=== PATIENT | male | born 1965 | race Caucasian/White ===

== ENCOUNTER 2023-04-08 07:02 | Emergency (ER) | payer OTHER, SELFPAY ==
[2023-04-08 07:10] VITALS: BP 147/77
--- NOTE | 2023-04-08 07:16 | ED.GENMED ---
History of Present Illness
General
Chief Complaint: Chest Pain
Time Seen by Provider: 04/08/23 07:16
Travel History
Have you had any contact with someone who has COVID-19?: No
Do you have any symptoms of coronavirus? Fever > 100 degrees, chills, cough, shortness of breath, sore throat, loss of taste or smell, muscle aches, or headache?: No
History of Present Illness
History of Present Illness:
HPI: Patient relates she had left-sided lower rib discomfort that started yesterday but worsened today. He has no associated shortness of breath or diaphoresis. He was at the gym today and symptoms worsen with position changes. He has no history
of high blood pressure, high cholesterol, diabetes, no first-degree family history of premature CAD, and never smoked.
EXAM:
GENERAL: Well appearing in no distress
HEENT: Moist oral mucosa
CARDIOVASCULAR: No murmurs, normal heart rate and rhythm, moderate to severe point chest wall tenderness in the left anterolateral region
PULMONARY: No respiratory distress, breath sounds are fairly clear but there does appear to be some rales at the left base
ABDOMEN: Soft with no peritoneal signs, no tenderness
NEUROLOGIC: Excellent strength all extremities, no coordination deficits
PSYCHIATRIC: Appropriate mental status, normal insight and judgement
EXTREMITIES: Nontender, no edema, moves all extremities equally
SKIN: No rash, no lesions
ED COURSE:
7:30 AM I initially evaluated patient
NUMBER AND COMPLEXITY OF PROBLEMS ADDRESSED AT THE ENCOUNTER
� Chronic conditions affecting care: Hypothyroidism
� Acute Exacerbation and/or Progression of Chronic Illness: This is an acute problem
� Differential Diagnosis includes: Chest wall pain, ACS very unlikely, PE very unlikely as heart rate is 55 and room air sats are 100% and reports no shortness of breath
AMOUNT AND/OR COMPLEXITY OF DATA TO BE REVIEWED AND ANALYZED
� I performed an independent evaluation of and my interpretation is:
EKG: Sinus 52, normal axis, no acute ST abnormality
CT:
X-rays: Chest x-ray shows no acute abnormality
Laboratory Studies: CBC and chemistries unremarkable, troponin negative despite 24 hours of symptoms, D-dimer reassuring
Other:
� Review of other/old records: The patient had several ED visits over the last few years related to back pain; blood work from 2021 was unremarkable
� Clinical information was obtained by an independent historian: I spoke to the at bedside
� Prescriptions/Medications Considered but not given:
� Further testing considered but not performed:
RISK OF COMPLICATIONS AND/OR MORBIDITY OR MORTALITY OF PATIENT MANAGEMENT
� Social determinants of health affecting care: Lives at home
� Discussion with other providers:
� Escalation of care including admission/observation vs risk of discharge considered: About 1 day of worsening left anterolateral chest which is very reproducible on exam with both palpation and position changes of the torso with
normal EKG. However troponin was checked as he is in his 50s and was unremarkable. D-dimer negative. On reassessment at 9:20 AM, the patient reports virtually no ongoing chest pain after Toradol was given. However given his age I do recommend he
follows up with cardiology. Low risk cardiology follow-up has been arranged.
Past History
Past History
ED Past Medical History: Other
ED Past Surgical History: None
Social History
Tobacco: Non-smoker
Personal:
Living: with family
Phy Exam
Physical Exam
Physical Exam:
See HPI
Scores
Heart Score for Chest Pain Patients
STEMI patient?: Not applicable
Course
Orders/Labs/Results
Orders:
Orders
04/08/23 07:05
ECG [Electrocardiogram (*1)] Urgent
Reason for Study: Chest Pain
04/08/23 07:06
EKG- Treatment ONCE
04/08/23 07:19
CR Chest - 2 Views Urgent
Comment:
Reason For Exam: L CP
04/08/23 07:27
Ketorolac [Toradol] 15 mg IV NOW STA
04/08/23 07:36
Basic Metabolic Panel Urgent
Complete Blood Count/No Diff Urgent
D-Dimer Urgent
Magnesium Urgent
Troponin I Urgent
Abnormal Lab Results
04/08/23
07:36
BUN 25 H mg/dl
(9-20)
Glucose 104 H mg/dl
(70-99)
04/08/23 07:36
04/08/23 07:36
Vital Signs
Initial and Last Documented VS:
Initial Vital Signs
Temp Pulse Resp BP Pulse Ox
98.4 F 60 18 147/77 98
04/08/23 07:10 04/08/23 07:10 04/08/23 07:10 04/08/23 07:10 04/08/23 07:10
Last Documented Vital Signs
Temp Pulse Resp BP Pulse Ox
98.4 F 52 20 112/76 96
04/08/23 07:10 04/08/23 08:00 04/08/23 08:00 04/08/23 08:00 04/08/23 08:00
*Critical Care Note
Total Time (30-74mins, 75-104mins- exclusive of procedures): Not Applicable
ED Attending Note
-
Portions of this chart may have been created with voice recognition software.� Occasional wrong word or��sound alike� substitutions may have occurred due to the inherent limitations of voice recognition software.
Discharge Plan
Departure
Patient Disposition: Home (Routine Discharge)
Date of Disposition: 04/08/23
Time of Disposition: 09:24
Patient with high blood pressure during this ER visit?: Yes
Discharge Problem:
Chest wall pain
Instructions: Chest Pain CBC Follow Up
Prescriptions:
No Action
levothyroxine 125 mcg Tablet
125 mcg PO DAILY
Glucosamine Chondroitin 550-30-1 mg Capsule
1 cap PO DAILY
Referrals:
Angel Wilkinson MD [Active] - Follow up in 2-3 days
Luke Daniels MD [Family Provider] -
Activity Restrictions/Additional Instructions:
All your cardiac testing is negative today, I do recommend you follow-up with hand plate stacker. Somebody from [facility] cardiology should be contacting you to arrange follow-up. I have given you the contact information for one of the hand plate stacker
in that group. I recommend 3-4 [id number] ibuprofen (Motrin) every 8 hours with food for a few days. Return here if worse.
Interventions
Interventions:
*Risk Screen - Suicide Last Done: 04/08/23 07:54
*General Assessment Last Done: 04/08/23 07:40
*Neglect/Abuse Screening Last Done: 04/08/23 07:54
ED- Fall Risk Assessment Last Done: 04/08/23 07:40
*ED COVID-19 Vaccine History Last Done: 04/08/23 07:10
ED- Cardiac Assessment Last Done: 04/08/23 07:42
[2023-04-08 07:36] VITALS: BP 111/87
[2023-04-08] MEDS: TORADOL 15 MG IV (07:38)
[2023-04-08 07:40] VITALS: BMI 25.8
[2023-04-08 07:45] LABS: Hemoglobin 15.8 g/dL (13.0-18.0); Mean Corp Hgb Conc. 35.1 g/dL (33.0-37.0); Mean Corpuscular Volume 88.2 fL (80.0-94.0); Mean Platelet Volume 9.8 fL (7.4-10.4); Platelet Count 162 10^3/uL (130-400); Red Cell Dist. Width 12.4 % (11.5-14.5); White Blood Cell Count 6.3 10^3/uL (4.8-10.8)
[2023-04-08 07:58] VITALS: BP 114/79
[2023-04-08 08:00] VITALS: BP 112/76
[2023-04-08 08:02] LABS: Blood Urea Nitrogen 25 mg/dl (9-20); Calcium 9.1 mg/dl (8.4-10.2); Carbon Dioxide 27 mmol/L (22-30); Chloride 106 mmol/L (98-107); Estimated Creatinine Clearance 90 ml/min; Glucose 104 mg/dl (70-99); Magnesium 1.9 mg/dl (1.6-2.3); Potassium 4.4 mmol/L (3.5-5.1); Sodium 138 mmol/L (135-145); eGFR > 60.00
[2023-04-08 08:14] LABS: Troponin I < 0.012 ng/ml
[2023-04-08 09:00] VITALS: BP 110/75
[2023-04-08 09:03] LABS: D-Dimer < 0.27 ug/mlFEU (0.00-0.50)
== END 2023-04-08 09:37 | disposition home or self-care (01) ==
LOC: EMR 07:02
PROVIDERS: EMERGENCY PHYSICIAN Emergency Medicine; FAMILY PHYSICIAN Internal Medicine
DX: R07.89 Other chest pain (principal); E03.9 Hypothyroidism, unspecified
CPT/HCPCS: 71046; 80048; 83735; 84484; 85027; 85379; 93005; 96374; 99283

== ENCOUNTER 2023-04-08 21:26 | Emergency (ER) | payer OTHER, SELFPAY ==
[2023-04-08 21:29] VITALS: BP 153/87
[2023-04-08 21:54] LABS: % Basophils 0.3 % (0-2); % Eosinophils 2.3 % (0-6); % Immature Granulocytes 0.3 % (0-0.5); % Lymphocytes 34.5 % (20.5-51.1); % Monocytes 9.7 % (1.7-9.3); % Neutrophils 52.9 % (42.2-75.2); Absolute Eosinophils 0.2 10^3/uL (0-0.7); Absolute Monocytes 0.8 10^3/uL (0.1-0.6); Absolute Neutrophils 4.5 10^3/uL (1.4-6.5); Hematocrit 43.3 % (39.0-52.0); Hemoglobin 15.1 g/dL (13.0-18.0); Mean Corp Hgb Conc. 34.9 g/dL (33.0-37.0); Mean Corpuscular Hgb 30.8 pg (27.0-31.0); Mean Corpuscular Volume 88.2 fL (80.0-94.0); Nucleated Red Blood Cells % 0 % (-); Platelet Count 160 10^3/uL (130-400); Red Blood Cell Count 4.91 10^6/uL (4.70-6.10); Red Cell Dist. Width 12.6 % (11.5-14.5); White Blood Cell Count 8.6 10^3/uL (4.8-10.8)
[2023-04-08 22:28] VITALS: BP 112/74; BMI 25.3
[2023-04-08 22:28] LABS: ALT (SGPT) 29 U/L (0-50); AST (SGOT) 27 U/L (17-59); Alkaline Phosphatase 77 U/L (38-126); Blood Urea Nitrogen 37 mg/dl (9-20); Calcium 9.2 mg/dl (8.4-10.2); Carbon Dioxide 28 mmol/L (22-30); Chloride 100 mmol/L (98-107); Glucose 129 mg/dl (70-99); Potassium 4.5 mmol/L (3.5-5.1); Sodium 137 mmol/L (135-145); Total Bilirubin 0.8 mg/dl (0.2-1.3); eGFR > 60.00
[2023-04-08 22:30] LABS: Lipase 83 U/L (23-300); Total Protein 6.4 g/dl (6.3-8.2)
[2023-04-08] MEDS: MORPHINE SULFATE 4 MG IV (22:51)
[2023-04-08] MEDS: ZOFRAN 4 MG IV (22:51)
--- NOTE | 2023-04-08 22:53 | ED.GENMED ---
History of Present Illness
<Whitley Bloom MD - Last Filed: 04/13/23 09:02>
General
Chief Complaint: Abdominal Pain
Source: patient and family
Time Seen by Provider: 04/08/23 22:57
Travel History
Have you had any contact with someone who has COVID-19?: No
Do you have any symptoms of coronavirus? Fever > 100 degrees, chills, cough, shortness of breath, sore throat, loss of taste or smell, muscle aches, or headache?: No
History of Present Illness
History of Present Illness:
57-year-old male with a prior medical history of hypothyroidism, otherwise healthy, who says that he had discomfort in the lower anterior costal area on the left side a day or 2 ago, mild. He jokes that he asked if his had kicked him. He went
to the gym today, and shortly after noticed increasing pain particularly in the left anterior lower costal area which prompted his visit to the emergency department. He had an extensive workup including labs, D-dimer, troponin, chest x-ray, ECG.
He was given Toradol, and was pain-free upon discharge. He felt perfectly well until about 2 or 3 hours ago when the pain gradually came back and is isolated to a specific pinpoint location at the left anterior lower costal area. It is not in his
abdomen. He denies nausea, vomiting, fever, chills. He now has a nonproductive cough which he did not have earlier. The pain feels 'stabbing spasms' comes and goes without specific provoking or relieving factors, and increasing in frequency and
intensity. He denies radiation, associated back pain, urinary symptoms, headache, dizziness, numbness, tingling, or other complaints. He denies leg swelling, recent immobilization, recent trauma, history of blood clots in him or family members, or
other PE risk factors.
Past History
<Whitley Bloom MD - Last Filed: 04/13/23 09:02>
Past History
ED Past Medical History: Hypothyroidism
ED Past Surgical History: None
Social History
Tobacco: Non-smoker
Alcohol: None
Drug: None
Personal:
Living: with family
Phy Exam
<Whitley Bloom MD - Last Filed: 04/13/23 09:02>
Physical Exam
Physical Exam:
GENERAL: Alert , appears uncomfortable
EYE: pupils equal and reactive
NECK: Supple, no significant adenopathy.
ENT: o/p clr, mmm.
CARDIAC: Regular rate and rhythm .
LUNGS: Clear breath sounds bilaterally, no acute respiratory distress, no wheezes/rales/rhonchi, mild focal ttp at focal area lwer L ant costal area, no crepitus, no rash
ABDOMEN: Soft, without focal tenderness, no r/g, no cvat
NEUROLOGICAL: Alert and oriented, no focal neuro deficits
SKIN: Warm and dry, skin intact.
MUSCULOSKELETAL: No edema, well perfused.
PSYCH: Normal and appropriate interaction.
Course
<Whitley Bloom MD - Last Filed: 04/13/23 09:02>
Orders/Labs/Results
Orders:
Orders
04/08/23 21:33
Electrocardiogram (*1) Urgent
Reason for Study: Abdominal Pain
EKG- Treatment ONCE
IV Insert/Care/Rem.- Treatment PRN
04/08/23 21:47
Complete Blood Count/With Diff Urgent
Comprehensive Metabolic Panel Urgent
Lipase Urgent
04/08/23 22:46
Troponin I Urgent
Comment: .
04/08/23 22:49
Morphine Sulfate 4 mg .ROUTE .STK-MED ONE
Ondansetron Injectable [Zofran] 4 mg .ROUTE .STK-MED ONE
04/08/23 22:50
Ondansetron Injectable [Zofran] 4 mg IV NOW STA
04/08/23 22:51
Morphine Sulfate 4 mg IV NOW STA
04/08/23 22:53
CR Chest - 2 Views Urgent
Comment:
Reason For Exam: L inferior ant costal pain
04/08/23 23:18
Ketorolac [Toradol] 15 mg IV NOW STA
04/08/23 23:49
0.9% Sodium Chloride 500 ml [Nss] 500 ml IV BOLUS
04/09/23 00:01
Cyclobenzaprine HCl [Flexeril] 10 mg .ROUTE .STK-MED ONE
04/09/23 01:18
Cyclobenzaprine HCl [Flexeril] 10 mg PO NOW STA
04/09/23 01:39
CT Chest Pe Study Urgent
Comment:
Reason For Exam: left lower chest pain
Abnormal Lab Results
04/08/23
21:47
Absolute Monos (auto) 0.8 H 10^3/uL
(0.1-0.6)
Monocytes % 9.7 H %
(1.7-9.3)
BUN 37 H mg/dl
(9-20)
Glucose 129 H mg/dl
(70-99)
04/08/23 21:47
04/08/23 21:47
Vital Signs
Initial and Last Documented VS:
Initial Vital Signs
Temp Pulse Resp BP Pulse Ox
98.3 F 60 22 153/87 98
04/08/23 21:29 04/08/23 21:29 04/08/23 21:29 04/08/23 21:29 04/08/23 21:29
Last Documented Vital Signs
Temp Pulse Resp BP Pulse Ox
98.3 F 56 20 94/58 97
04/08/23 21:29 04/09/23 03:36 04/09/23 03:36 04/09/23 03:36 04/09/23 03:36
<Rafael iLu, DO - Last Filed: 04/11/23 19:32>
Orders/Labs/Results
Orders:
Orders
04/08/23 21:33
Electrocardiogram (*1) Urgent
Reason for Study: Abdominal Pain
EKG- Treatment ONCE
IV Insert/Care/Rem.- Treatment PRN
04/08/23 21:47
Complete Blood Count/With Diff Urgent
Comprehensive Metabolic Panel Urgent
Lipase Urgent
04/08/23 22:46
Troponin I Urgent
Comment: .
04/08/23 22:49
Morphine Sulfate 4 mg .ROUTE .STK-MED ONE
Ondansetron Injectable [Zofran] 4 mg .ROUTE .STK-MED ONE
04/08/23 22:50
Ondansetron Injectable [Zofran] 4 mg IV NOW STA
04/08/23 22:51
Morphine Sulfate 4 mg IV NOW STA
04/08/23 22:53
CR Chest - 2 Views Urgent
Comment:
Reason For Exam: L inferior ant costal pain
04/08/23 23:18
Ketorolac [Toradol] 15 mg IV NOW STA
04/08/23 23:49
0.9% Sodium Chloride 500 ml [Nss] 500 ml IV BOLUS
04/09/23 00:01
Cyclobenzaprine HCl [Flexeril] 10 mg .ROUTE .STK-MED ONE
04/09/23 01:18
Cyclobenzaprine HCl [Flexeril] 10 mg PO NOW STA
04/09/23 01:39
CT Chest Pe Study Urgent
Comment:
Reason For Exam: left lower chest pain
Abnormal Lab Results
04/08/23
21:47
Absolute Monos (auto) 0.8 H 10^3/uL
(0.1-0.6)
Monocytes % 9.7 H %
(1.7-9.3)
BUN 37 H mg/dl
(9-20)
Glucose 129 H mg/dl
(70-99)
04/08/23 21:47
04/08/23 21:47
Vital Signs
Initial and Last Documented VS:
Initial Vital Signs
Temp Pulse Resp BP Pulse Ox
98.3 F 60 22 153/87 98
04/08/23 21:29 04/08/23 21:29 04/08/23 21:29 04/08/23 21:29 04/08/23 21:29
Last Documented Vital Signs
Temp Pulse Resp BP Pulse Ox
98.3 F 56 20 94/58 97
04/08/23 21:29 04/09/23 03:36 04/09/23 03:36 04/09/23 03:36 04/09/23 03:36
<Rafael Liu DO - Last Filed: 04/11/23 19:32>
*Critical Care Note
Total Time (30-74mins, 75-104mins- exclusive of procedures): Not Applicable
<Whitley Bloom MD - Last Filed: 04/13/23 09:02>
Update Note
Update Note:
Patient presents to the Emergency Department with lower chest pain
Number and Complexity of Problems Addressed at the Encounter
� Chronic conditions affecting care:
� Acute Exacerbation and/or Progression of Chronic Illness:
� Differential Diagnosis includes: But not limited to costochondritis, pleurisy, pneumothorax, pneumonia, ACS, PE
Amount and/or Complexity of Data to be Reviewed and Analyzed
� I performed an independent evaluation of and my interpretation is:
EKG: Read by me, sinus bradycardia, normal axis, no acute ischemia
CT:
Xrays:cxr read by me, no ptx, no effusion, nl mediastinum
Laboratory Studies: Nonspecific BUN elevation
Other:
� Review of other/old records reveals:
� Clinical information was obtained by an independent historian: who is at bedside
� Prescriptions/Medications Considered but not given:
� Further testing considered but not performed:
Risk of Complications and/or Morbidity or Mortality of Patient Management
� Social determinants of health affecting care:
� Discussion with other providers (PCP, Hospitalists, Consultants, etc):
� Escalation of care including admission/observation vs risk of discharge considered: I suspect PE is extremely unlikely given normal D-dimer earlier today, lack of risk factors, lack of dyspnea, leg swelling, etc. Pain is not
particularly characteristic of a PE. Will review ECG but doubt ACS. Chest x-ray pending pain medication administered.
cxr unremkarable. Doubt dissection, pain not ripping/tearing/radiating, nl mediastinum, etc. Pt very very comfortable, smiling, in nad.
?spasm as cause of sxs. Patient had very similar symptoms sometime ago, although it was in the back at that time. The nature of the pain was very similar and last time he needed to return to the emergency department also. Will observe and
reassess, likely d/c with f/u if continues to be pain free, nl vitals and without new sxs. Signout Dr. Alvarenga
<Rafael Liu, - Last Filed: 04/11/23 19:32>
Update Note
Update Note:
Patient presents to the Emergency Department with lower chest pain
Number and Complexity of Problems Addressed at the Encounter
� Chronic conditions affecting care:
� Acute Exacerbation and/or Progression of Chronic Illness:
� Differential Diagnosis includes: But not limited to costochondritis, pleurisy, pneumothorax, pneumonia, ACS, PE
Amount and/or Complexity of Data to be Reviewed and Analyzed
� I performed an independent evaluation of and my interpretation is:
EKG: Read by me, sinus bradycardia, normal axis, no acute ischemia
CT:
Xrays:cxr read by me, no ptx, no effusion, nl mediastinum
Laboratory Studies: Nonspecific BUN elevation
Other:
� Review of other/old records reveals:
� Clinical information was obtained by an independent historian: who is at bedside
� Prescriptions/Medications Considered but not given:
� Further testing considered but not performed:
Risk of Complications and/or Morbidity or Mortality of Patient Management
� Social determinants of health affecting care:
� Discussion with other providers (PCP, Hospitalists, Consultants, etc):
� Escalation of care including admission/observation vs risk of discharge considered: I suspect PE is extremely unlikely given normal D-dimer earlier today, lack of risk factors, lack of dyspnea, leg swelling, etc. Pain is not
particularly characteristic of a PE. Will review ECG but doubt ACS. Chest x-ray pending pain medication administered.
cxr unremkarable. Doubt dissection, pain not ripping/tearing/radiating, nl mediastinum, etc. Pt very very comfortable, smiling, in nad.
?spasm as cause of sxs. Patient had very similar symptoms sometime ago, although it was in the back at that time. The nature of the pain was very similar and last time he needed to return to the emergency department also. Will observe and
reassess, likely d/c with f/u if continues to be pain free, nl vitals and without new sxs. Signout Dr. Alvarenga
04/09/2023 0146 AM: Patient getting ready to be discharged. IV was removed. He started to walk around the room, he had return of symptoms. He states that he had left lower chest pain. Patient still feels that it could be a rib. At this point,
patient will get a CT to rule out PE as he feels that the increased breathing exacerbated his symptoms.
CTA chest with intravenous contrast
IMPRESSION:
No pulmonary embolus. No aortic dissection or aneurysm.
Mild cardiomegaly. Lungs clear aside from dependent atelectasis.
Small left pleural effusion. No pneumothorax or right pleural effusion. Cardiomegaly.
ED Attending Note
<Whitley Bloom MD - Last Filed: 04/13/23 09:02>
-
Portions of this chart may have been created with voice recognition software.� Occasional wrong word or��sound alike� substitutions may have occurred due to the inherent limitations of voice recognition software.
Discharge Plan
Departure
Patient Disposition: Home (Routine Discharge)
Date of Disposition: 04/09/23
Time of Disposition: 04:01
Patient with high blood pressure during this ER visit?: Yes
Condition: Good
Discharge Problem:
Chest wall pain
Instructions: Chest Pain (DC), BLOOD PRESSURE
Prescriptions:
New
cyclobenzaprine 10 mg tablet
10 mg PO TID PRN (Reason: muscle spasm) Qty: 14 0RF
No Action
levothyroxine 125 mcg Tablet
125 mcg PO DAILY
Glucosamine Chondroitin 550-30-1 mg Capsule
1 cap PO DAILY
Activity Restrictions/Additional Instructions:
IF YOU DEVELOP RECURRENT/NEW/WORSENING PAIN, FEVER, CHILLS, VOMITING, DIZZINESS, BACK PAIN, ABDOMINAL PAIN, OR OTHER WORRISOME SIGNS, GO TO THE ER IMMEDIATELY!
Interventions
Interventions:
*Risk Screen - Suicide Last Done: 04/08/23 22:28
*General Assessment Last Done: 04/08/23 21:29
*Neglect/Abuse Screening Last Done: 04/08/23 21:29
ED- Fall Risk Assessment Last Done: 04/08/23 22:28
*ED COVID-19 Vaccine History Last Done: 04/08/23 21:29
*Nursing Disposition Last Done: 04/09/23 03:30
SW-[id number]-Mdviqcirgh Assessment Last Done: 04/08/23 22:28
Discharge Date and Time
Discharge Date/Time: 04/09/23 03:45
[2023-04-08 23:16] LABS: Troponin I < 0.012 ng/ml
[2023-04-08 23:28] VITALS: BP 114/80
[2023-04-08] MEDS: TORADOL 15 MG IV (23:30)
[2023-04-09] MEDS: NSS 500 IV (00:02)
[2023-04-09 00:08] VITALS: BP 101/64
[2023-04-09 01:15] VITALS: BP 105/67
[2023-04-09] MEDS: FLEXERIL 10 MG PO (01:18)
[2023-04-09 02:08] VITALS: BP 109/75
[2023-04-09 03:30] VITALS: BP 100/70
[2023-04-09 03:36] VITALS: BP 94/58
== END 2023-04-09 03:45 | disposition home or self-care (01) ==
LOC: EMR 21:26
PROVIDERS: EMERGENCY PHYSICIAN Emergency Medicine; FAMILY PHYSICIAN Internal Medicine
DX: R07.89 Other chest pain (principal); E03.9 Hypothyroidism, unspecified
CPT/HCPCS: 99284; 71046; 71275; 80053; 83690; 84484; 85025; 93005; Q9967